=== PATIENT | male | born 1975 | race Caucasian/White ===

== ENCOUNTER 2024-03-26 11:18 | Emergency (ER) | payer BC, SELFPAY ==
--- NOTE | ~2024-03-26 | XR_ITS ---
EXAMINATION: XR chest 2V 03/26/2024 11:51 INDICATION: Cough and congestion PROCEDURE: 2 view chest COMPARISON: No prior studies for comparison. FINDINGS: The lungs are clear. The cardiomediastinal silhouette is within normal limits. There are no pleural effusions. There is no pneumothorax suspected. IMPRESSION: 1: NO ACUTE CARDIOPULMONARY DISEASE. Reviewed, dictated and finalized at location B.
--- NOTE | 2024-03-26 11:22 | ED.URI ---
HPI - URI/Sore Throat General Chief Complaint: Upper Respiratory Infection Stated Complaint: feeling ill Time Seen by Provider: 03/26/24 11:22 Source: patient Mode of arrival: ambulatory Limitations: no limitations History of Present Illness HPI Narrative: Federico is a 48-year-old male patient presenting to the clinic today with complaints of feeling ill since Saturday. He reports he feels fatigue, sore throat, cough, and some rib pain from coughing so hard. Cough has been keeping him up at night. He is bringing up some clear phlegm. He is a current smoker 1.5-2 packs per day times 27 years. Denies any chest pain or shortness of breath. He denies any fever or chills but has had body aches. MD elicited complaint: sore throat and nasal congestion Related Data Allergies Allergy/AdvReac Type Severity Reaction Status Date / Time No Known Allergies Allergy Verified 03/26/24 11:38 Review of Systems Review of Systems: Pertinent positives per HPI. Patient denies any fever, chills, rash, headache, visual changes, dizziness, shortness of breath, chest pain, palpitations, nausea, vomiting, diarrhea, constipation, abdominal pain, or any urinary issues. [facility] Family History Family History Mother Family history of cardiomyopathy Social History Social History Smoking packs per day: 2 Smoking cigarettes per day: 40.0 Years smoked: 27 Smoking pack-years: 54.00 Tobacco type: cigarettes Second hand tobacco smoke exposure: No Alcohol intake: current Drinks per week: 12 Substance use: never Substance use type: does not use Living arrangements: with family Occupation/Education: occupation Gender identity (if verbalized by the patient): Male Comments At the time of my signature, I reviewed and agree with the nursing past medical, surgical, social, and family history. There is no relevant family history pertinent to the patient complaint. Exam Narrative: General: Well-developed, well nourished, in no apparent distress Head: Normocephalic, atraumatic Eyes: Pupils equally round and reactive to light bilaterally, EOM intact, sclera and conjunctive clear, no discharge, lids normal Ears: TMs intact and clear, ear canals clear, no drainage, grossly hearing normal. Nose: Nares patent, no discharge, no inflammation, no sinus tenderness. Mouth: Oral pharynx red without lesions or masses, good dentition, MMM. Neck: Supple, trachea midline, no enlargement of anterior or posterior cervical nodes, no thyroid masses or goiter palpable. Cardio: Regular rate and rhythm, s1 and s2 normal, no murmur appreciated. Resp: Faint wheezing in the left upper lobe posteriorly, course in the bases, no rales or rubs Course Course Emergency Course: Portions of this record may have been created with voice recognition software. Level of Care: Express Care Visit Vital Signs Vital signs: Vital Signs Temperature 36.9 C 03/26/24 11:28 Pulse Rate 122 H 03/26/24 11:28 Respiratory Rate 18 03/26/24 11:28 Blood Pressure 134/98 H 03/26/24 11:28 Pulse Oximetry 97 03/26/24 11:28 Oxygen Delivery Room Air 03/26/24 11:28 Temperature 36.9 C 03/26/24 11:28 Pulse Rate 117 H 03/26/24 12:24 Respiratory Rate 18 03/26/24 11:28 Blood Pressure 144/96 H 03/26/24 12:24 Pulse Oximetry 97 03/26/24 12:24 Oxygen Delivery Room Air 03/26/24 12:24 Vital signs reviewed MDM - URI/Sore Throat MDM Narrative Medical decision making narrative: At the time of visit patient is resting comfortably on the exam table. Patient appears to be nontoxic. Labs: COVID, influenza, and strep test were negative Plan: I suspect patient has bronchitis. Patient has been taking [id number] cold and flu medications and his blood pressure is 134/90 with a heart rate of 122. He denies any chest pain, diz
[2024-03-26 11:28] VITALS: BP 134/98; PULSE 122; RESP 18; TEMP 36.9; O2SAT 97
[2024-03-26 11:57] LABS: EDSTREPNEGPOS1 Negative (Negative)
[2024-03-26 12:16] LABS: EDCOVIDSCREEN Negative (Negative); EDINFLUASCREEN Negative (Negative); EDINFLUBSCREEN Negative (Negative)
[2024-03-26 12:24] VITALS: BP 144/96; PULSE 117; O2SAT 97
== END 2024-03-26 12:36 | disposition home or self-care (01) ==
PROVIDERS: Emergency Provider Nurse Practitioner Family; PCP Family Medicine
DX: J40 Bronchitis, not specified as acute or chronic (principal); Z20.822 Contact with and (suspected) exposure to COVID-19; F17.210 Nicotine dependence, cigarettes, uncomplicated
CPT/HCPCS: 71046; 87081; 87426; 87804; 87880; 99213; G0463